=== PATIENT | male | born 1990 | race African-American/Black ===

== ENCOUNTER 2016-07-21 16:28 | Emergency (ER) | payer BC ==
[~2016-07-21] VITALS: Ht 182.9 cm; Wt 67.4 kg
[~2016-07-21 16:28] MED LIST: ATR10 PO; DSY50 PO
[2016-07-21 16:37] VITALS: TEMP 37.7; Ht 182.9 cm; Wt 67.4 kg
[2016-07-21] MEDS ORDERED: ABL/15 PO (16:51)
[2016-07-21] MEDS ORDERED: SODIUM CHLORIDE 0.9% 1000ML 1,000 ML IV STA (17:13)
[2016-07-21 17:21] VITALS: O2SAT 96
[2016-07-21] MEDS ORDERED: LORAZEPAM 0.5 MG TAB SL STA (17:28)
[2016-07-21] MEDS ORDERED: hydrOXYzine HCL IM SOLN 50 MG/ML 1 ML VIAL IM STA (17:33)
[2016-07-21] MEDS ORDERED: LORAZEPAM 2 MG/ML 1 ML VIAL IV STA (17:36)
[2016-07-21 17:46] LABS: BASO % 0.2 %; BASO ABS # 0.02 K/uL (0-0.2); COMPLETE YES; EOS % 0.1 %; HEMATOCRIT 39.9 % (42-52); IG% 0.2 %; LYMPH % 12.2 %; LYMPH ABS # 1.22 K/uL (1.2-3.4); MEAN CELL VOLUME 97.6 fL (80-100); MEAN CORPUSCULAR HEMOGLOBIN 33.5 pg (25-34); MEAN CORPUSCULAR HGB CONC 34.3 g/dl (32-36); MONO % 5.1 %; NEUT % 82.2 %; PLATELET COUNT 148 K/uL (130-400); RED BLOOD COUNT 4.09 M/uL (4.7-6.1); WHITE BLOOD COUNT 10.04 K/uL (4.8-10.8)
[2016-07-21 17:54] LABS: BUN/CREATININE RATIO 10.5 (10-20); CALCIUM 8.8 mg/dl (8.5-10.1); CREATININE 0.89 mg/dl (0.60-1.40); POTASSIUM 4.3 mmol/L (3.5-5.1)
[2016-07-21 17:55] LABS: INR 1.1 (0.9-1.1); PROTHROMBIN TIME (PATIENT) 11.3 SECONDS (9.0-12.0)
--- NOTE | 2016-07-21 18:01 | EMERGENCY ROOM VISIT NOTE ---
History Report prepared by Bre: Neeta Botello Under the Supervision of: Dr. Avni May M.D. First contact with patient: 16:58 Chief Complaint: ALTERED MENTAL STATUS Stated Complaint: OVERDOSE, ANXIETY Nursing Triage Summary: pt arrives via EMS , mother reports pt has not slept X 3 days , has has appt with psych on and had meds increased , Ablifyto 15mg today, per mother " I have given him extra trazadone over since with no effect , mother reports that pt does not like to take meds and needs to be reminded to take meds , "pt likes to do things natural". 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 The history is obtained from the patient's mother due to the patient's AMS. The patient has a history of anxiety. Over the past week his anxiety has become much worse. He has not been sleeping. Mother states that the most he has slept at one time this week is three hours at a time. She states that he is afraid to go to sleep because he is afraid that he might or that something bad might happen to a family member. The patient's anxiety is worsened with stress. He graduated in May, but has been stressed about grad school applications. She states, "He thinks that he has to be perfect, to the point where he can't function." The patient was taking Adderall but has stopped taking that since he graduated. Today the patient's mother increased his Abilify to 15 mg today. She has been giving him increased Trazodone for the past 3 days as well. Today he took Trazodone and then was in the bathroom for a long time. She went to check on him and found him kneeling in the bathroom. She asked if he wanted to take a nap and the patient replied that he wanted to go to the hospital. This is the last thing that he has said today. The patient was brought to the ED by ambulance. Mother noes that the patient does not like to take pills. He had similar issues with his anxiety in 2014. He does not currently see a therapist. Source of History: patient Onset: NETWORK SECURITY ANALYST Position: other (mental status) Quality: other (altered) Timing: constant Modifying Factors (Worsening): other (anxiety/stress) Note: Pt has not been sleeping. Review of Systems ROS is limited secondary to AMS. Past Medical & Surgical Medical Problems: (1) ADD (attention deficit disorder) (2) Depression (3) Pneumonia Family History No pertinent history stated. Social History Smoking Status: Current Every Day Smoker Alcohol Use: occasionally Marital Status: single Housing Status: lives with family Occupation Status: unemployed Current/Historical Medications Scheduled Aripiprazole (Abilify), 15 MG PO DAILY Trazodone HCl (Trazodone HCl), 50 MG PO HS Scheduled PRN Hydroxyzine HCl (Hydroxyzine HCl), 10 MG PO Q6 PRN for ANXIETY Allergies Coded Allergies: Sulfa Drugs (Verified Allergy, Intermediate, UNKNOWN, 07/21/16) Physical Exam Vital Signs Date Time Temp Pulse Resp B/P Pulse Ox O2 Delivery O2 Flow Rate FiO2 07/21/16 20:45 76 16 133/88 99 07/21/16 20:26 72 16 138/86 100 Room Air 07/21/16 18:33 110 18 130/72 98 Room Air 07/21/16 17:21 96 Room Air 07/21/16 16:39 119 07/21/16 16:37 37.7 119 18 146/83 97 Room Air Physical Exam GENERAL: Patient is a healthy-appearing well-nourished 25 year old male. HEAD: Normocephalic atraumatic EYES: Ocular movements intact pupils equal and react to light OROPHARYNX mucous membranes are moist no exudates present no erythema or edema present NECK: Supple no nuchal rigidity CHEST: Good equal expansion LUNGS: Clear and equal to auscultation CARDIAC: Normal S1 and S2 ABDOMEN: Soft nontender no guarding BACK: No CVA tenderness EXTREMITIES: No pain upon palpation normal muscle strength in all groups no clubbing cyanosis or edema NEURO: Patient will not respond to commands or answer questions. Alert and oriented x3 Cranial Nerves 2-12 grossly intact Medical Decision & Procedures Laboratory Results 07/21/16 17:20 Red Blood Count 4.09, Mean Corpuscular Volume 97.6, Mean Corpuscular Hemoglobin 33.5, Mean Corpuscular Hemoglobin Concent 34.3, Mean Platelet Volume 12.0, Neutrophils (%) (Auto) 82.2, Lymphocytes (%) (Auto) 12.2, Monocytes (%) (Auto) 5.1, Eosinophils (%) (Auto) 0.1, Basophils (%) (Auto) 0.2, Neutrophils # (Auto) 8.26, Lymphocytes # (Auto) 1.22, Monocytes # (Auto) 0.51, Eosinophils # (Auto) 0.01, Basophils # (Auto) 0.02 07/21/16 17:20 Test 07/21/16 17:20 07/21/16 17:30 07/21/16 18:30 White Blood Count 10.04 K/uL (4.8-10.8) Red Blood Count 4.09 M/uL (4.7-6.1) Hemoglobin 13.7 g/dL (14.0-18.0) Hematocrit 39.9 % (42-52) Mean Corpuscular Volume 97.6 fL (80-100) Mean Corpuscular Hemoglobin 33.5 pg (25-34) Mean Corpuscular Hemoglobin Concent 34.3 g/dl (32-36) Platelet Count 148 K/uL (130-400) Mean Platelet Volume 12.0 fL (7.4-10.4) Neutrophils (%) (Auto) 82.2 % Lymphocytes (%) (Auto) 12.2 % Monocytes (%) (Auto) 5.1 % Eosinophils (%) (Auto) 0.1 % Basophils (%) (Auto) 0.2 % Neutrophils # (Auto) 8.26 K/uL (1.4-6.5) Lymphocytes # (Auto) 1.22 K/uL (1.2-3.4) Monocytes # (Auto) 0.51 K/uL (0.11-0.59) Eosinophils # (Auto) 0.01 K/uL (0-0.5) Basophils # (Auto) 0.02 K/uL (0-0.2) RDW Standard Deviation 45.2 fL (36.4-46.3) RDW Coefficient of Variation 12.7 % (11.5-14.5) Immature Granulocyte % (Auto) 0.2 % Immature Granulocyte # (Auto) 0.02 K/uL (0.00-0.02) Prothrombin Time 11.3 SECONDS (9.0-12.0) Prothromb Time International Ratio 1.1 (0.9-1.1) Activated Partial Thromboplast Time 26.4 SECONDS (21.0-31.0) Partial Thromboplastin Ratio 1.0 Anion Gap 8.0 mmol/L (3-11) Est Creatinine Clear Calc Drug Dose 123.1 ml/min Estimated GFR () 139.7 Estimated GFR (Non- 120.5 BUN/Creatinine Ratio 10.5 (10-20) Calcium Level 8.8 mg/dl (8.5-10.1) Total Bilirubin 0.5 mg/dl (0.2-1) Direct Bilirubin 0.2 mg/dl (0-0.2) Aspartate Amino Transf (AST/SGOT) 14 U/L (15-37) Alanine Aminotransferase (ALT/SGPT) 16 U/L (12-78) Alkaline Phosphatase 36 U/L (45-117) Total Creatine Kinase 116 U/L (39-308) Total Protein 8.0 gm/dl (6.4-8.2) Albumin 4.3 gm/dl (3.4-5.0) Lipase 73 U/L (73-393) Salicylates Level 3.2 mg/dl (2.8-20) Acetaminophen Level < 2 ug/ml (10-30) Ethyl Alcohol mg/dL < 3.0 mg/dl (0-3) Urine Color YELLOW Urine Appearance CLEAR (CLEAR) Urine pH 6.0 (4.5-7.5) Urine Specific Grace >= 1.030 (1.000-1.030) Urine Protein TRACE (NEG) Urine Glucose (UA) NEG (NEG) Urine Ketones NEG (NEG) Urine Occult Blood NEG (NEG) Urine Nitrite NEG (NEG) Urine Bilirubin NEG (NEG) Urine Urobilinogen NEG (NEG) Urine Leukocyte Esterase NEG (NEG) Urine RBC 0-4 /hpf (0-4) Urine WBC 1-5 /hpf (0-5) Urine Epithelial Cells 5-10 /lpf (0-5) Urine Bacteria NEG (NEG) Urine Opiates Screen NEG (NEG) Urine Methadone, Qualitative NEG (NEG) Urine Barbiturates NEG (NEG) Urine Phencyclidine (PCP) Level NEG (NEG) Ur Amphetamine/Methamphetamine NEG (NEG) MDMA (Ecstasy) Screen POS (NEG) Urine Benzodiazepines Screen NEG (NEG) Urine Cocaine Metabolite NEG (NEG) Urine Marijuana (THC) POS (NEG) Medications Administered Medications (Trade) Dose Ordered Sig/Elizabeth Route Start Time Stop Time Status Last Admin Dose Admin Sodium Chloride (Nss 1000ml) 1,000 ml @ 999 mls/hr Q1H1M STAT IV 07/21/16 17:13 07/21/16 18:13 DC 07/21/16 17:13 999 MLS/HR Lorazepam (Ativan Inj) 0.5 mg NOW STAT IV 07/21/16 17:36 07/21/16 17:38 DC 07/21/16 17:43 0.5 MG ECG Indication: altered mental status Rate (beats per minute): 119 Rhythm: sinus tachycardia Findings: no acute ischemic change, no ectopy ED Course 1657: Past medical records reviewed. The patient was evaluated in room A10. A complete history and physical examination was performed. 1713: NSS 1000 ml @ 999 mls/hr IV 173: Ativan 0.5 mg IV 1956: I spoke with the psychiatric liaison regarding the patient's treatment plan. She felt that the patient should be discharged home. 1999: I reassessed the patient at this time. He is resting comfortably. I discussed the results and treatment plan with the patient and his mother. I answered all pertaining questions that they had. They expressed understanding and verbalized agreement. The patient will be discharged home. Medical Decision Differential diagnosis: Etiologies such as mood disorder, infection, hypoglycemia, electrolyte abnormalities, cardiac sources, intracerebral event, toxicologic, neurologic, as well as others were entertained. This is a 25-year-old male who presents emergency department complaining of not sleeping for the past 3 days. The patient's mother is adamantly demanding that the patient receive something help him sleep here in the emergency department although the patient himself will not respond to me normally talk to me. In addition the patient's mother gave him a larger than usual dose of trazodone as well as Vistaril. The patient will only push me away if I come to close to him. I did ask the psychiatric liaison nurse to see the patient as well as 3 S. who got the patient to open up and speak with them. He denies being suicidal or homicidal. I do believe he is medically clear. The patient does not wish to be admitted here to the emergency department however he does wish to follow-up as an outpatient. He does not have any criteria to 302 him therefore I feel that the patient can be discharged safely home. Patient was in agreement with the treatment plan. Impression Primary Impression: Mood disorder Scribe Attestation The scribe's documentation has been prepared under my direction and personally reviewed by me in its entirety. I confirm that the note above accurately reflects all work, treatment, procedures, and medical decision making performed by me. Departure Information Dispostion Home / Self-Care Referrals Luis Real M.D. (PCP) Forms HOME CARE DOCUMENTATION FORM, IMPORTANT VISIT INFORMATION, School Instructions, Work Instructions Patient Instructions My [facility] Additional Instructions Follow up with Dr Finney's office You received narcotic or benzodiazepene medication while in the emergency room today. Do not drive, operate heavy machinery, or drink alcohol under the influence of this medication. You have been examined and treated today on an emergency basis only. This is not a substitute for, or an effort to provide, complete comprehensive medical care. It is impossible to recognize and treat all injuries or illnesses in a single emergency department visit. It is therefore important that you follow up closely with Dr Real. Call as soon as possible for an appointment. Thank you for your time and consideration. I look forward to speaking with you again soon. Please don't hesitate to call us if you have any questions.
[2016-07-21 18:17] LABS: ACETAMINOPHEN < 2 ug/ml (10-30)
[2016-07-21 18:43] LABS: MANUAL MICROSCOPIC REQUIRED? YES; URINE APPEARANCE CLEAR (CLEAR); URINE BILIRUBIN NEG (NEG); URINE COLOR YELLOW; URINE NITRITE NEG (NEG); URINE SPECIFIC GRAVITY >= 1.030 (1.000-1.030); UROBILINOGEN NEG (NEG)
[2016-07-21 18:45] LABS: REVIEW REQ? NO
[2016-07-21 18:46] LABS: URINE BACTERIA NEG (NEG); URINE RBC 0-4 /hpf (0-4)
[2016-07-21 19:07] LABS: BENZODIAZEPINE, URINE NEG (NEG); COCAINE,URINE NEG (NEG); PHENCYCLIDINE, URINE NEG (NEG)
[2016-07-21 20:45] VITALS: BP 133/88; PULSE 76; O2SAT 99
== END 2016-07-21 20:46 | disposition home or self-care (01) ==
LOC: EDBD 16:28 → C.EDA 16:32
DX: F39 Unspecified mood [affective] disorder (principal); F17.200 Nicotine dependence, unspecified, uncomplicated; F90.9 Attention-deficit hyperactivity disorder, unspecified type; F32.9 Major depressive disorder, single episode, unspecified; Z87.01 Personal history of pneumonia (recurrent)